=== PATIENT | female | born 1985 | race Caucasian/White ===

== ENCOUNTER 2017-11-28 12:38 | Emergency (ER) | END 2017-11-28 15:55 | disposition home or self-care (01) ==

== ENCOUNTER 2018-07-23 10:03 | Day surgery (SDC) | payer OTHER ==
[~2018-07-23] VITALS: Ht 162.6 cm; Wt 75.5 kg
[2018-07-23] VITALS (19 sets, daily range): BP systolic 109–127; BP diastolic 74–82; PULSE 76–107; RESP 12–29; Ht 162.6 cm; Wt 75.5 kg
--- NOTE | 2018-07-23 08:34 | PREOPHP ---
DATE OF ADMISSION: 07/23/2018 No dictation. Dictated By: RENU SILVA/FLORINDA Conf#: [id number] DID#: [id number] CC: RENU ESTES MD;*EndCC*
--- NOTE | 2018-07-23 08:41 | PREOPHP ---
DATE OF ADMISSION: 07/23/2018 HISTORY OF PRESENT ILLNESS: The patient is a 32-year-old 5, para 3 with cervical dysplasia, SEKOU 2. She desires surgical management. PAST MEDICAL HISTORY: Hypertension, depression. MEDICATIONS: Hypertension medications and depression. PAST SURGICAL HISTORY: Tummy tuck, rhinoplasty, liposuction, bladder lift. OBSTETRICAL HISTORY: x3 vaginal deliveries, x1 termination of , x1 missed AB. GYNECOLOGIC HISTORY: 12, regular, 8 days not sexually active. Sexually transmitted infections HPV. SOCIAL HISTORY: She denies any smoking, drugs or alcohol. FAMILY HISTORY: Mother with cervical cancer. PHYSICAL EXAMINATION: HEENT: Within normal. LUNGS: CTA bilateral. CARDIOVASCULAR: S1, S2, regular rhythm. ABDOMEN: Soft, nontender, negative distention. EXTREMITIES: Negative calf tenderness. No edema. VAGINAL: Normal external genitalia. Cervix negative, CMT, negative lesions. Adnexa negative mass, nontender bilateral. Fundus within normal limits. Biopsy performed on 05/28/2018 of the cervix with the findings of transformation zone mucosa with focal high-grade squamous intraepithelial lesion, CI N 2. P16 block positive supporting the above diagnosis. ASSESSMENT: Cervical dysplasia, SEKOU 2. PLAN: Schedule for loop electrode excision procedure, also known as LEEP. Risks, benefits, and alte rnatives were explained. All questions were answered. Dictated By: RENU SILVA/FLORINDA Conf#: [id number] DID#: [id number] CC: RENU ESTES MD;*EndCC*
[~2018-07-23 10:03] MED LIST: ACET-2158 PO; ALBU8.5H8 INH; DOCU-144 PO; FIORICET PO; HYDR-3498 PO; NAPR-985 PO; NITR-58 PO; NORE1TAB70 PO; ONDA4TAB35 PO; ONDA4TAB8 PO; POLY17PO6 PO
[2018-07-23] MEDS ORDERED: METO-448 PO (10:36)
[2018-07-23] MEDS ORDERED: STRONG IODINE 14 ML SOLUTION TOP ONE (12:40)
--- NOTE | 2018-07-23 12:49 | PREAC ---
Date/Time of Note Date/Time of Note DATE: 07/23/18 TIME: 12:48 Anesthesia Eval and Record Evaluation Time Pre-Procedure Interview DATE: 07/23/18 TIME: 12:48 Age 32 Sex female NPO: 8 hrs Preoperative diagnosis SEKOU II Planned procedure BHARGAVI PRATT Past Medical History Past Medical History: None Surgery & Anesthesia Issues No known issue Meds Anticoagulation: No Beta Issac within 24 hr: No Reason Beta Issac not given: Pt. not on B-Issac Reported Medications Metoprolol Tartrate* (Lopressor*) 25 Mg Tab, 25 MG PO DAILY, #60 TAB 07/23/18 Discontinued Reported Medications Norethindrone-Ethinyl Estradiol (Ortho-Novum) 1 Tab Tablet, 1 TAB PO DAILY, TAB 09/23/15 Discontinued Scripts Nitrofurantoin Monohyd Macrocr* (Macrobid*) 100 Mg Capsr, 100 MG PO BID for 7 Days, CAP Prov:SANFORD CERVANTES PA-C 11/28/17 Ondansetron Hcl* (Zofran*) 4 Mg Tablet, 4 MG PO Q6H for NAUSEA AND/OR VOMITING, #30 TAB Prov:SANFORD CERVANTES PA-C 11/28/17 Acetamin/Butalbital/Caffeine* (Fioricet*) [id number] Tab, 1 TAB PO Q6H PRN for PAIN, #30 TAB Prov:SANFORD CERVANTES PA-C 11/28/17 Albuterol Sulfate* (Proair HFA*) 8.5 Gm Hfa.aer.ad, 2 PUFF INH Q4, #1 INHALER Prov:SANFORD CERVANTES PA-C 05/09/16 Naproxen* (Naprosyn*) 500 Mg Tablet, 500 MG PO BID PRN for PAIN AND/OR INFLAMMATION, #30 TAB Prov:SANFORD CERVANTES PA-C 05/09/16 Polyethylene Glycol* (Miralax*) 17 Gm Powd.pack, 17 GM PO DAILY PRN for CONSTIPATION for 10 Days, PACKET Prov:SILVANA TATUM MD 12/13/14 Docusate Sodium* (Colace*) 100 Mg Cap, 100 MG PO Q12H PRN for CONSTIPATION for 14 Days Prov:SILVANA TATUM MD 12/13/14 Hydrocodone Bit-Acetaminophen* ([place]*) 5-325 Mg Tab, 2 TAB PO Q4H PRN for HEADACHE for 10 Days, TAB Prov:SILVANA TATUM MD 12/13/14 Ondansetron Hcl* (Zofran* ODT) 4 mg -ODT Tab.disper, 4 MG PO Q4H PRN for NAUSEA AND OR VOMITING for 10 Days, TAB Prov:SILVANA TATUM MD 12/13/14 Acetaminophen (TYLENOL 325 MG TAB) 325 Mg Tab, 650 MG PO Q6H PRN for PAIN LEVEL 1-3 OR FEVER for 10 Days, TAB Prov:SILVANA TATUM MD 12/13/14 Meds reviewed: Yes Allergies Coded Allergies: acetaminophen (Verified Adverse Reaction, Unknown, NAUSEA, 07/23/18) PER PT hydrocodone (Verified Adverse Reaction, Unknown, NAUSEA, 07/23/18) PER PT Uncoded Allergies: PLASTIC TAPE (Allergy, Severe, RASH, 09/23/15) Allergies Reviewed: Yes Labs/Studies Labs Reviewed: Reviewed by anesthesiologist Result Diagram: 07/23/18 1100 Laboratory Tests 07/23/18 11:00 Blood Bank Test 07/23/18 11:00 Blood Type A POSITIVE test: Negative Pre-procedure Exam Last vitals Vital Signs Date Temp Pulse Resp B/P (MAP) Pulse Ox O2 O2 Flow FiO2 Time Delivery Rate 07/23/18 98.0 107 16 114/78 97 Room Air 11:30 (90) Airway: Adequate mouth opening, Adequate thyromental dist Mallampati: Mallampati II Teeth: Normal Lung: Normal Heart: Normal ASA Physical Status ASA physical status: 1 Emergency: None Planned Anesthetic General/MAC: ETT Planned Pain Management Parenteral pain med Pre-operative Attestations Prior to commencing anesthesia and surgery, the patient was re-evaluated, there was verification of: *The patient's identity *The results of appropriate recent lab work and preoperative vital signs *The above evaluation not changing prior to induction *Anesthetic plan, risk benefits, alternative and complications discussed with patient/family; questions answered; patient/family understands, accepts and wishes to proceed. Armando Hammer M.D. Jul 23, 2018 12:49
[2018-07-23] MEDS ORDERED: ROCURONIUM 50 MG INJ ONE (12:52)
[2018-07-23] MEDS ORDERED: GLYCOPYRROLATE 0.4 MG INJ ONE (12:52)
[2018-07-23] MEDS ORDERED: PROPOFOL 20 ML ONE (12:52)
[2018-07-23] MEDS ORDERED: CEFAZOLIN 1 GM INJ ONE (12:52)
[2018-07-23] MEDS ORDERED: DEXAMETHASONE 4 MG/ML 5 ML INJ ONE (12:54)
[2018-07-23] MEDS ORDERED: MIDAZOLAM 1 MG/ML 2 ML INJ ONE (12:54)
[2018-07-23] MEDS ORDERED: ONDANSETRON 4 MG INJ ONE (12:54)
[2018-07-23] MEDS ORDERED: FENTAnyl 50 MCG/ML VIAL ONE (12:54)
[2018-07-23] MEDS ORDERED: DIPHENHYDRAMINE 50 MG INJ IV PRN (13:00)
[2018-07-23] MEDS ORDERED: EPHEDrine SULFATE 50 MG/5 ML SYG IV PRN (13:00)
[2018-07-23] MEDS ORDERED: FENTAnyl 50 MCG/ML VIAL IV PRN ×3 (13:00)
[2018-07-23] MEDS ORDERED: MEPERIDINE 25 MG INJ IV PRN (13:00)
[2018-07-23] MEDS ORDERED: hydrALAzine 20 MG INJ IV PRN (13:00)
[2018-07-23] MEDS ORDERED: IPRATROPIUM (NEB) 0.5 MG/2.5 ML AMP HHN PRN (13:00)
[2018-07-23] MEDS ORDERED: HYDROmorphONE 1 MG/5 ML IV SYRINGE IV PRN ×3 (13:00)
[2018-07-23] MEDS ORDERED: MIDAZOLAM 1 MG/ML 2 ML INJ IV PRN (13:00)
[2018-07-23] MEDS ORDERED: ALBUTEROL 0.083% (NEB) 2.5 MG/3 ML AMP HHN PRN (13:00)
[2018-07-23] MEDS ORDERED: LABETALOL HCL 20MG INJ IV PRN (13:00)
[2018-07-23] MEDS ORDERED: TRIMETHOBENZAMIDE 100 MG/ML VIAL IM PRN (13:00)
[2018-07-23] MEDS ORDERED: METOCLOPRAMIDE 10 MG INJ ONE (13:20)
--- NOTE | 2018-07-23 13:25 | OPPN ---
Date/Time of Note Date/Time of Note DATE: 07/23/18 TIME: 13:23 Operative Report Planned Procedure Procedure date Jul 23, 2018 Procedure(s) loop electrode excision procedure, also known as LEEP Performed by see signature line Interior Assemblies Developer Prover: RENU ESTES MD 2nd Interior Assemblies Developer Prover none Anesthesiologist: Armando Hammer M.D. Pre-procedure diagnosis cervical dysplasia george 2 [id number] Anesthesia Type: Yhvmz4x general Post-Procedure Post-procedure diagnosis same Findings no cervical lesions Estimated Blood Loss: 0 - 10 mls (10 ml) Specimen(s) portion of the cervix Grafts/Implant(s) none Complication(s) none RENU ESTES MD Jul 23, 2018 13:25
--- NOTE | 2018-07-23 13:26 | PD.PPDC ---
NUTRIENT MANAGEMENT SPECIALIST Discharge Instruction Condition [id number] Patient Condition: Souwl7j Fair Diet Ohcmr7Vm Diet: Zksti6o Resume Regular Diet Activity/Restrictions Obbmt8Lc Activity: Qkblg5f Normal Activity May Shower Hhnqm0Hy Restrictions: Mfgqz4r No Exercising No Lifting No Driving No Sexual Activity Nothing in the Vagina No [place] No Tampons, douche Follow-up Follow-up with Physician: 2, Week/Weeks Return to clinic for Fflzf1Rt SCALE BALANCER Instructions: Uhgwo8r Fever greater than 101 Chills Worsening abdominal pain Excessive Vaginal Bleeding More than 2 pads per hour Unable to tolerate diet Iufzy8Og OB Instructions: Kgibh0u Breast Tenderness Depression Blurried Vision Headache Ytnos9Qs Surgical Instructions: Edidv5c Incisional Drainage Incisional Redness RENU ESTES MD Jul 23, 2018 13:26
--- NOTE | 2018-07-23 13:36 | PAC ---
Date/Time of Note Date/Time of Note DATE: 07/23/18 TIME: 13:35 Post-Anesthesia Notes Post-Anesthesia Note Last documented vital signs Vital Signs Date Temp Pulse Resp B/P (MAP) Pulse Ox O2 O2 Flow FiO2 Time Delivery Rate 07/23/18 98.0 107 16 114/78 97 Room Air 13:36 (90) Activity: WNL Respiratory function: WNL Cardiovascular function: WNL Mental status: Baseline Pain reasonably controlled: Yes Hydration appropriate: Yes Nausea/Vomiting absent: Yes Armando Hammer M.D. Jul 23, 2018 13:36
[2018-07-23] MEDS: ONDANSETRON 4 MG INJ IV PRN ×2 (14:36→16:25)
--- NOTE | 2018-07-24 08:57 | OPR ---
DATE OF OPERATION: 07/23/2018 No dictation. Dictated By: RENU SILVA/FLORINDA Conf#: [id number] DID#: [id number] CC: RENU ESTES MD;*End*
--- NOTE | 2018-07-24 09:04 | OPR ---
DATE OF OPERATION: 07/23/2018 PREOPERATIVE DIAGNOSIS: Cervical dysplasia SEKOU 2. POSTOPERATIVE DIAGNOSIS: Cervical dysplasia SEKOU 2. OPERATION PERFORMED: LEEP (loop electrocautery excision procedure). NANOTECHNOLOGY TECHNICIAN: None. ANESTHESIA: General. COMPLICATIONS: None. ESTIMATED BLOOD LOSS: Minimal. PATHOLOGY: Portion of the cervix. FINDINGS: Normal cervix, no lesions. DESCRIPTION OF PROCEDURE: After explaining the risks, benefits and alternatives, the patient was yocasta en to the operating room where general anesthesia was obtained without difficulty. The patient was t hen placed in a dorsal lithotomy position and prepared and draped. The cervix was coated with Lugol solution. An electrosurgical conization using the loop was done attempting to remove all the Lugol's negative areas. Specimen was sent to pathology. Hemostasis was obtained using a ball electrocauter y. The patient tolerated procedure well without complications. The patient was taken to recovery ro in stable condition. Follow up precautions and post-procedure instructions were given to patient. Appointment was made for postop procedure checkup in approximately 2 weeks. Dictated By: RENU SILVA/FLORINDA Conf#: [id number] DID#: [id number] CC: RENU ESTES MD;*EndCC*
== END 2018-07-23 16:20 | disposition home or self-care (01) ==
LOC: SDS 10:03
PROVIDERS: ATTEND Obstetrics & Gynecology
DX: N87.1 Moderate cervical dysplasia (principal)
CPT/HCPCS: 57522; 84702; 84703; 85025; 86900; 86901; J0690; J1100; J1170; J2175; J2250; J2405; J2765; J3010; Z7512; Z7610; 88305